=== PATIENT | male | born 1990 | race Caucasian/White ===

== ENCOUNTER 2021-11-26 16:08 | Emergency (ER) | payer SELFPAY ==
[~2021-11-26] VITALS: Ht 175.3 cm; Wt 79.4 kg
[2021-11-26] MEDS ORDERED: VENTOLIN HFA18 GM INH (16:16)
[2021-11-26] MEDS ORDERED: AZITHROMYCIN250 MG PO (16:16)
[2021-11-26] MEDS ORDERED: PREDNISONE20 MG PO (16:16)
== END 2021-11-26 16:31 | disposition home or self-care (01) ==
LOC: ER 16:13
DX: R05.9 Cough, unspecified (principal); J06.9 Acute upper respiratory infection, unspecified; H92.09 Otalgia, unspecified ear
CPT/HCPCS: 99283

== ENCOUNTER 2022-03-15 12:45 | Emergency (ER) | payer BC, OTHER ==
[~2022-03-15] VITALS: Ht 175.3 cm; Wt 79.4 kg
[~2022-03-15 12:45] MED LIST: AZITHROMYCIN250 MG PO; PREDNISONE20 MG PO; VENTOLIN HFA18 GM INH
[2022-03-15] MEDS ORDERED: DOXYCYCLINE HY100 MG PO (13:22)
[2022-03-15] MEDS ORDERED: ONDANSETRON HCL 4 MG ORAL DISINTEGRATING TAB PO ONE (13:30)
[2022-03-15] MEDS ORDERED: CEFTRIAXONE 1 GM VIAL IM ONE (13:30)
[2022-03-15] MEDS ORDERED: METRONIDAZOLE 500 MG TAB PO ONE (13:30)
== END 2022-03-15 13:24 | disposition home or self-care (01) ==
LOC: ER 12:59
DX: A64 Unspecified sexually transmitted disease (principal)
CPT/HCPCS: 99283